=== PATIENT | male | born 1960 | race Two or more races ===

== ENCOUNTER → 2016-04-14 | Outpatient (REF) | payer BC | END | disposition home or self-care (01) | LOC: M SFHCLERA 10:19 | PROVIDERS: ATTEND Physician Assistant | DX: L02.214 Cutaneous abscess of groin (principal) ==

== ENCOUNTER 2024-04-24 18:54 | Emergency (ER) | payer BC ==
[~2024-04-24] VITALS: Ht 182.9 cm; Wt 129.6 kg
[2024-04-24] MEDS: IPRATROPIUM 0.5MG/ALBUTEROL 2.5MG INH SOL UD 3ML (DUONEB) NEB PRN (19:21)
[2024-04-24 19:24] LABS: ABG BASE EXCESS -2.2 (-2.0-2.0); ABG O2 SATURATION 97.2 % (95.0-99.0); ABG PARTIAL PRESSURE CO2 46.4 mmHg (35.0-45.0); ABG PARTIAL PRESSURE O2 101.5 mmHg (75.0-100.0); ABG STANDARD HCO3 22.6 MMOL/L. (22.0-26.0); ABG TOTAL CO2 25.4 MMOL/L (23.0-31.0); ABG pH (ARTERIAL) 7.332 UNITS (7.350-7.450)
[2024-04-24 19:33] VITALS: O2SAT 95
[2024-04-24 19:34] LABS: BASO # 0.1 10^3/uL (0.0-0.2); BASO % 1.1 % (0.0-1.0); EOS # 0.3 10^3/uL (0.0-0.5); EOS % 3.3 % (0.0-3.0); HEMATOCRIT 47.7 % (42.0-52.0); HEMOGLOBIN 16.2 g/dl (13.5-17.5); LYMPH # 1.3 10^3/uL (1.5-5.0); LYMPH % 16.5 % (24.0-44.0); MEAN CORPUSCULAR HEMOGLOBIN 30.9 pg (27.0-33.0); MONO # 1.4 10^3/uL (0.0-0.8); MONO % 17.1 % (2.0-8.0); NEUTROPHILS % 61.6 % (36.0-66.0); PLATELET COUNT, AUTOMATED 229 10^3/uL (150-450); RED BLOOD COUNT 5.24 10^6/uL (4.30-6.10); WHITE BLOOD COUNT 8.1 10^3/uL (4.0-10.0)
[2024-04-24] MEDS: diphenhydrAMINE 50MG/ML VIAL IV STA (19:36)
[2024-04-24] MEDS: FAMOTIDINE 20MG/2ML VIAL IVP ONE (19:36)
[2024-04-24 19:56] LABS: ALBUMIN 4.2 G/DL (3.2-5.2); ALKALINE PHOSPHATASE 65 U/L (40-129); ALT/SGPT 52 U/L (7.0-40); AST/SGOT 32 U/L (<34); BILIRUBIN,DIRECT 0.2 MG/DL (<0.4); BILIRUBIN,TOTAL 0.6 MG/DL (0.3-1.2); BLOOD UREA NITROGEN 26 MG/DL (9-23); CALCIUM LEVEL 8.7 MG/DL (8.3-10.6); CARBON DIOXIDE LEVEL 27 MMOL/L (20-31); CHLORIDE LEVEL 99 MMOL/L (98-107); CK-MB VALUE MASS < 1.0 NG/ML (<3.6); CREATININE FOR GFR 1.37 MG/DL (0.70-1.30); GLOMERULAR FILTRATION RATE 55.9 (>49); GLUCOSE, FASTING 142 MG/DL (74-106); POTASSIUM SERUM 4.2 MMOL/L (3.5-5.1); SODIUM LEVEL 139 MMOL/L (136-145); TOTAL PROTEIN 7.6 G/DL (5.7-8.2)
[2024-04-24 19:58] LABS: THYROID STIMULATING HORMONE 0.679 uIU/ML (0.55-4.78)
[2024-04-24 20:00] LABS: CPK CREATINE PHOSPHOKINASE 189 U/L (46-171); MB/CK RELATIVE INDEX 0.52 (< OR =4)
[2024-04-24] MEDS ORDERED: ISOVUE-370 76% 100ML VIAL As Ordered ONE (20:26)
[2024-04-24] MEDS: OSELTAMIVIR PHOSPHATE 75 MG CAP PO ONE (20:51)
[2024-04-24 21:00] LABS: MB/CK RELATIVE INDEX 0.51 (< OR =4)
[2024-04-24] MEDS ORDERED: SIMV20TA22 PO (22:51)
[2024-04-24] MEDS ORDERED: FLUT1INH2 INH (22:51)
[2024-04-24] MEDS ORDERED: LISI20TA37 PO (22:51)
[2024-04-24] MEDS ORDERED: ALBU8.5H INH (22:51)
[2024-04-24] MEDS ORDERED: HOME MED LIST COMPLETE! XX SCH (22:55)
[2024-04-24] MEDS ORDERED: OSEL75CA PO (22:56)
[2024-04-24] MEDS ORDERED: VENTAER INH (22:57)
[2024-04-24] MEDS ORDERED: PRED20TA PO (22:57)
[2024-04-24 23:00] VITALS: BP 120/70; TEMP 98.2
[2024-04-24 23:15] VITALS: O2SAT 79
== END 2024-04-24 23:31 | disposition home or self-care (01) ==
LOC: M ED 18:54 → EDBD 18:54 → M ED 23:31
DX: J09.X2 Influenza due to identified novel influenza A virus with other respiratory manifestations (principal); Z53.9 Procedure and treatment not carried out, unspecified reason; I10 Essential (primary) hypertension; E78.5 Hyperlipidemia, unspecified; J30.89 Other allergic rhinitis
CPT/HCPCS: 36600; 71045; 71275; 80048; 80076; 82550; 82553; 82803; 83880; 84443; 84484; 85025; 87040; 87486; 87581; 87633; 87798; 93005; 93041; 94640; 94760; 96374; 96375; 99285; J1200; Q9967; S0028